=== PATIENT | female | born 1955 | race Caucasian/White ===

== ENCOUNTER → 2023-06-05 07:06 | Outpatient (REF) | payer MEDICARE, OTHER, SELFPAY | LOC: HWRAD 07:06 | PROVIDERS: ATTENDING PHYSICIAN Internal Medicine | DX: R11.0 Nausea (principal) | CPT/HCPCS: 76700 ==

== ENCOUNTER → 2023-06-29 19:32 | Outpatient (REF) | payer MEDICARE, OTHER, SELFPAY | LOC: MRI 19:32 | PROVIDERS: ATTENDING PHYSICIAN Physician Assistant Medical; FAMILY PHYSICIAN Internal Medicine | DX: M25.561 Pain in right knee (principal) | CPT/HCPCS: 73721 ==

== ENCOUNTER → 2024-01-06 07:47 | Outpatient (REF) | payer MEDICARE, OTHER, SELFPAY | LOC: HWRAD 07:47 | PROVIDERS: ATTENDING PHYSICIAN Obstetrics & Gynecology; FAMILY PHYSICIAN Internal Medicine | DX: M81.0 Age-related osteoporosis without current pathological fracture (principal) | CPT/HCPCS: 77080 ==

== ENCOUNTER → 2024-03-18 10:10 | Outpatient (REF) | payer MEDICARE, OTHER, SELFPAY | LOC: HWRAD 10:10 | PROVIDERS: ATTENDING PHYSICIAN Internal Medicine | DX: M19.041 Primary osteoarthritis, right hand (principal) | CPT/HCPCS: 73130 ==